=== PATIENT | male | born 1965 | race Caucasian/White ===

== ENCOUNTER 2018-01-26 12:05 | Emergency (ER) | payer BC, SELFPAY ==
[2018-01-26 12:20] VITALS: BP 138/86; PULSE 102; RESP 18; TEMP 37.1; O2SAT 94
--- NOTE | 2018-01-26 13:11 | DI.RAD_ITS ---
SYMPTOMS/DIAGNOSIS: COUGH, SHORTNESS OF BREATH AP AND LATERAL CHEST: The lungs are well expanded and free of infiltrate. The cardiovascular structures are intact. SUMMARY: No evidence of acute cardiopulmonary disease.
[2018-01-26 13:44] LABS: Abs Immature Grans 0.02 k/cumm (0.0-0.09); Absolute Basophil Count 0.06 k/cumm (0.0-0.2); Absolute Eosinophil Count 0.32 k/cumm (0.0-0.7); Absolute Lymphocyte Count 3.34 k/cumm (1.2-3.4); Absolute Monocyte Count 0.74 k/cumm (0.11-0.7); Absolute Neutrophil Count 5.74 k/cumm (1.2-6.7); Basophils % 0.6; Eosinophils % 3.1; HCT 41.8 % (40.0-50.0); HGB 12.5 g/dL (13.5-17.5); Immature Grans % 0.2; Lymphocytes % 32.7; Mean Corp. HGB Concentration 29.9 g/dL (32.0-36.0); Mean Corpuscular Hemoglobin 20.2 pg (27.0-33.0); Mean Corpuscular Volume 67.4 fL (80-95); Monocytes % 7.2; Neutrophils % 56.2; Platelet Count 491 x1000/uL (130-400); RBC Distribution Width 22.6 % (11.8-14.1); White Blood Cell Count 10.22 k/cumm (4.4-10.8)
[2018-01-26 14:00] LABS: ALT 23 U/L (12-78); AST 17 U/L (15-37); Albumin 3.1 g/dL (3.4-5.0); Alkaline Phosphatase 86 U/L (46-116); Anion Gap 9.4 mmol/L (3-11); BUN 18 mg/dL (7-18); Bilirubin, Total 0.3 mg/dL (0.2-1.0); CO2 27.6 mmol/L (21.0-32.0); CREATININE 0.69 mg/dL (0.70-1.30); Calcium 8.8 mg/dL (8.5-10.1); Chloride 104 mmol/L (98-107); Glucose 106 mg/dL (70-100); NT-proBNP 12 pg/mL; Potassium 3.7 mmol/L (3.5-5.1); Sodium 141 mmol/L (136-145); Total Protein 8.2 g/dL (6.4-8.2)
[2018-01-26 14:08] LABS: Anisocytosis 2+; Diff Comment RBC Morph Reviewed; Hypochromasia 3+; Microcytosis 3+; Poikilocytes 1+; Polychromasia Present
[2018-01-26 14:12] LABS: D-Dimer 1030 ng/mlFEU (<500)
--- NOTE | 2018-01-26 14:44 | DI.CT_ITS ---
SYMPTOMS/DIAGNOSIS: ELEVATED D-DIMER, COUGH PE CT: CT angiography was performed with multi slice acquisition and multi planar and 3D reconstruction. The study was conducted according to the usual protocol with an intravenous injection of 89 cc of Omnipaque 350. There is no evidence of pulmonary embolic disease. The image quality is less than ideal due to patient motion and artifacts generated by the patient's orthopedic hardware in the lower dorsal and upper lumbar spine. There is a question regarding some faint increased density in the left lung bases and the possibility of an acute pneumonitis cannot be entirely excluded. There is no pleural effusion. The heart is not enlarged. There is no pericardial effusion. There is no evidence of an aortic aneurysm. SUMMARY: No evidence of pulmonary embolic disease. The possibility of an acute pneumonitis could not be entirely excluded.
--- NOTE | 2018-01-26 14:46 | ED.GENADUL_ITS ---
Discharge Plan Disposition Patient Disposition: HOME Condition: Fair Discharge Details Chief Complaint: RespSymp Clinical Impression: Pneumonia Primary Care Provider: Artis Gudino ED Provider: Angelica Tidwell Home Meds and New Rx's Prescriptions: Continue simvastatin [Zocor] 40 MG tablet 40 mg PO HS Qty: 90 RF: 4 metformin 500 MG tablet 500 mg PO BID RF: 0 multivitamin [Daily Multi-Vitamin] 1 EACH tablet 1 ea PO DAILY RF: 0 insulin glargine [Lantus U-100 Insulin] 100 UNIT/1 ML solution 50 u SQ HS Qty: 4 RF: 4 catheter [Fried Catheter] 1 EACH misc 1 ea Miscellaneous twice weekly and prn Qty: 12 RF: 12 insulin lispro [Humalog KwikPen Insulin] 100 UNIT/1 ML insulin pen 10 - 30 u SQ AC Qty: 30 RF: 3 pen needle, diabetic [BD Ultra-Fine Alie Pen Needle] 1 EACH needle 1 ea SQ AC Qty: 90 RF: 5 aspirin 81 MG tablet,delayed release (DR/EC) 81 mg PO DAILY RF: 0 acetaminophen [Mapap Extra Strength] 500 MG tablet 500 mg PO Q4H PRN PRNRF: 0 No Action benzonatate 100 mg capsule 100 mg PO TID PRN (Reason: cough) Qty: 90 RF: 0 Discharge Instructions Instructions: Pneumonia (ED) Additional Instructions: Encourage hydration. Take antibiotics as prescribed, the remaining [facility]. They should have this ready for you tomorrow. Please use albuterol inhaler 2 puffs 3-4 times per day as needed. Please keep upcoming appointment with primary care. If you develop shortness of breath, difficulty breathing or other new/worsening symptoms please seek care urgently once again. Referrals: Artis Gudino [Primary Care Provider] - Discharge Data Discharge Date/Time-TO BE ENTERED AT DEPARTURE: 01/26/18 16:28 Medical Decision Making Patient presents today with chief complaint of cough. Cough has been ongoing for the past several weeks. Patient was hospitalized recently for colostomy placement the beginning of the month. Since the cough has been nonproductive. Denies any fevers or chills. Denies any CP. Endorses SOB with cough, none with eertion or when at rest and not coughing. History is most consistent with infectious source. Patient's HR is elevated at 102, O2 is slightly low at 94. Concerned, given recent hospitalization and change in vital signs that he may be at risk for PE. He states that he has had a clot historically but is not currently on any anticoagulants. Calves are not swollen. Patient has history of paraplegia, legs are insensate. He appears in no acute distress. Appear nontoxic. Plan to obtain XR and laboratory evaluation. CXR reviewed by radiologist. No acute cardiopulmonary disease noted. Laboratory evaluation significant for elevated d-dimer of 1030. Platelets are also elevated, patient has been elevated like this historically. No leukocytosis. Obtained CT for PE protocol. This was reviewed by radiologist, discussed results on the phone, who advised that there is no evidence of PE. Advised that there is concerning area of possible pneumonia in the LLL. Discussed findings with the patient. He will be treated for pneumonia. Encuraged hydration, he is able to take in fluids orally at thsi time. Fazal treat for possible hospital acquired pneumonia. Patient given albuterol inhaler while here and instructed on usage to help with symptomatic management. Advised f/u with PCP within the next week for reevaluation. He was given strict return precautions. All of his questions and concerns were addressed, he is in agreement with this plan. HPI General Mode of arrival: wheelchair . Date/Time Provider Initiated Documentation: 01/26/18 12:22 . Limitations to Documentation: no limitations . Information obtained by: patient . HPI Narrative: Patient is a 52 year old male presenting today with chief complaint of cough. Patient has history of diabetes, paraplegia, hypertension and hyperlipidemia. Patient reports that he is been ill for the past several weeks with a dry cough. Denies any fevers or chills. No sore throat or ear pain. Denies any GI upset. Patient was seen by his primary care 1 week ago and was begun on levofloxacin. Reports he subsequently finished the course and despite this the cough is persistent. Reports that the cough is dry. Season he coughs he can have shortness of breath and is not having any baseline or exertionally based. Denies any chest pain. Related Data Home Medications Medication Instructions Recorded Confirmed simvastatin [Zocor] 40 mg PO HS #90 tab 01/22/17 01/28/18 acetaminophen [Mapap Extra 500 mg PO Q4H PRN PRN tab 07/04/17 01/28/18 Strength] aspirin 81 mg PO DAILY tabec 07/04/17 01/28/18 metformin 500 mg PO BID tab-cap 08/04/17 01/28/18 insulin glargine [Lantus U-100 50 u SQ HS #4 vial 11/02/17 01/20/18 Insulin] multivitamin [Daily Multi-Vitamin] 1 ea PO DAILY 11/02/17 01/28/18 catheter [Fried Catheter] #12 ea 12/02/17 01/20/18 insulin lispro [Humalog KwikPen 10 - 30 u SQ AC #30 pen 12/03/17 01/28/18 Insulin] pen needle, diabetic [BD #90 ndl 12/06/17 01/28/18 Ultra-Fine Alie Pen Needle] benzonatate 100 mg capsule 100 mg PO TID PRN #90 cap 01/28/18 01/28/18 Previous Rx's Medication Instructions Recorded simvastatin [Zocor] 40 mg PO HS #90 tab 01/22/17 acetaminophen [Mapap Extra 500 mg PO Q4H PRN PRN tab 07/04/17 Strength] aspirin 81 mg PO DAILY tabec 07/04/17 insulin glargine [Lantus U-100 50 u SQ HS #4 vial 11/02/17 Insulin] catheter [Fried Catheter] #12 ea 12/02/17 insulin lispro [Humalog KwikPen 10 - 30 u SQ AC #30 pen 12/03/17 Insulin] pen needle, diabetic [BD #90 ndl 12/06/17 Ultra-Fine Alie Pen Needle] benzonatate 100 mg capsule 100 mg PO TID PRN #90 cap 01/28/18 Allergies Allergy/AdvReac Type Severity Reaction Status Date / Time lisinopril AdvReac Mild COUGH Unverified 01/26/18 12:23 General Stated Complaint: RespSymp MENDOZA: 4 Review of Systems Constitutional Reports as per HPI, Denies chills and Denies fever(s) ENT Reports as per HPI Cardiovascular Denies chest pain, Denies chest pain at rest, Denies chest pain with activity, Denies dyspnea and Denies dyspnea on exertion Respiratory Reports as per HPI, Reports cough, Denies hemoptysis, Denies dyspnea, Denies dyspnea on exertion and Denies wheezing Gastrointestinal Denies change in stool character (patient recently underwent colostomy placement ), Denies nausea and Denies vomiting Integumentary/Breasts Denies rash Allergic/Immunologic Denies wheezing PFSH Family History Mother No problems noted. Father No problems noted. Brother No problems noted. Brother No problems noted. Grandfather Diabetes Personal history of malignant neoplasm Grandfather No problems noted. Grandmother Essential hypertension Personal history of malignant neoplasm Cerebrovascular accident Asthma Grandmother No problems noted. MATERNAL UNCLE Diabetes Social History marital status: SINGLE current occupational status: employed current occupation: [employer] frequency: 3-4 times per week duration: 15-30 minutes/day Smoking/Tobacco Use Status: Never alcohol intake: never Surgical History Debridement Ulcer (06/28/17) Exam Const General: cooperative, healthy appearing, comfortable, no acute distress and well groomed Nutritional Appearance: average body habitus and well nourished Orientation: alert and awake HENMT Head: normal to inspection and normocephalic Ears: hearing grossly normal bilaterally, external ears normal and TM's normal bilaterally Face and sinus: normal facial exam Mouth: oral mucosae normal, lip normal, tongue normal, oropharynx normal and moist mucous membranes Throat: posterior oropharynx normal, tonsils normal and uvula midline Eyes General: appearance normal, both eyes and all related structures Neck Neck: normal visual inspection and no lymphadenopathy Resp Effort & Inspection: normal respiratory effort, able to speak in complete sentences and no respiratory distress Auscultation: clear to auscultation bilaterally Cardio Rate: regular rate Rhythm: regular rhythm Heart Sounds: S1 normal and S2 normal Skin General skin exam: no rashes or lesions noted Extrem General: no pedal edema (no swelling or discoloration to the LE) Psych Appearance: grossly normal and well kempt Mental Status: mental status grossly normal Speech and Movement: speech and movement normal Course Vital Signs Temperature 37.1 C 01/26/18 12:20 Pulse 102 H 01/26/18 12:20 Respiratory Rate 18 01/26/18 12:20 Blood Pressure 138/86 01/26/18 12:20 Pulse Oximetry 94 L 01/26/18 12:20 Temperature 37.1 C 01/26/18 12:20 Temperature Source Skin 01/26/18 12:20 Pulse 102 H 01/26/18 12:20 Respiratory Rate 18 01/26/18 12:20 Respiratory Effort 01/26/18 12:35 Blood Pressure 138/86 01/26/18 12:20 Blood Pressure Position Sitting 01/26/18 12:20 Pulse Oximetry 94 L 01/26/18 12:20 Oxygen Delivery Method Room Air 01/26/18 12:20 Oxygen Flow Rate 0 01/26/18 12:20
[2018-01-26] MEDS: Normal Saline 1,000 ML 1000 ML IV (15:00)
[2018-01-26 15:32] LABS: INR 1.1 (1.0-3.5); PTT Activated 27.9 sec (21.0-31.4); Prothrombin Time 10.9 sec (9.3-10.8)
[2018-01-26] MEDS: Cefpodoxime 200 MG TAB 400 MG PO (16:11)
[2018-01-26] MEDS: Albuterol HFA 8 GM 60 PUFF INH IH (16:30)
== END 2018-01-26 16:28 | disposition home or self-care (01) ==
PROVIDERS: Emergency Provider Physician Assistant; PCP Family Medicine
DX: J18.9 Pneumonia, unspecified organism (principal); E11.9 Type 2 diabetes mellitus without complications; Z79.4 Long term (current) use of insulin; I10 Essential (primary) hypertension
CPT/HCPCS: 36415; 71275; 80053; 94640; 96360; 99285; 71046; 83880; 85025; 85379; 85610; 85730; 99284

== ENCOUNTER 2018-02-04 09:58 | Outpatient (CLI) | payer BC, SELFPAY ==
[2018-02-04 11:02] LABS: Hemoglobin A1C 7.1 % (4.5-6.2)
== END 2018-02-04 10:18 ==
PROVIDERS: PCP Family Medicine; Visit Provider Family Medicine
DX: E11.9 Type 2 diabetes mellitus without complications (principal)
CPT/HCPCS: 36415; 83036

== ENCOUNTER 2018-03-03 10:36 | Outpatient (REF) | payer BC, SELFPAY ==
[2018-03-03 11:09] LABS: Bilirubin Negative (Negative); Blood Small (Negative); Clarity Sl Cloudy; Glucose 500 mg/dL (Negative); Ketones Trace mg/dL (Negative); Leukocyte Esterase Trace (Negative); Nitrite Positive (Negative); Specific Gravity 1.025 (1.005-1.025); Urobilinogen 0.2 EU/dL (Up TO 0.2); pH 5.5 (5-8)
[2018-03-03 11:40] LABS: WBC 20-50 HPF (0-5)
[2018-03-03 11:41] LABS: Bacteria Many HPF (Negative); C & S Indicated? Yes; Casts Negative LPF (Negative); Epithelial Cells Negative HPF (Negative); Mucus Negative (Negative)
== END 2018-03-03 10:56 ==
LOC: LBN 10:36
PROVIDERS: PCP Family Medicine; Visit Provider Family Medicine
DX: R39.89 Other symptoms and signs involving the genitourinary system (principal)
CPT/HCPCS: 87077; 81003; 81015; 87086

== ENCOUNTER 2018-05-30 10:35 | Outpatient (REF) | payer BC, SELFPAY ==
[2018-05-30 11:08] LABS: HCT 41.7 % (40.0-50.0); HGB 12.9 g/dL (13.5-17.5); Mean Corp. HGB Concentration 30.9 g/dL (32.0-36.0); Mean Corpuscular Hemoglobin 21.5 pg (27.0-33.0); Mean Corpuscular Volume 69.4 fL (80-95); Mean Platelet Volume 9.9 fL (8.0-11.0); Platelet Count 364 x1000/uL (130-400); RBC 6.01 m/cumm (4.50-6.00); RBC Distribution Width 20.3 % (11.8-14.1); White Blood Cell Count 8.42 k/cumm (4.4-10.8)
[2018-05-30 11:55] LABS: ALT 17 U/L (12-78); AST 13 U/L (15-37); Alkaline Phosphatase 92 U/L (46-116); Anion Gap 10.7 mmol/L (3-11); BUN 23 mg/dL (7-18); Bilirubin, Total 0.1 mg/dL (0.2-1.0); C-Reactive Protein 1.61 mg/dL (0.0-0.3); CO2 26.3 mmol/L (21.0-32.0); CREATININE 0.73 mg/dL (0.70-1.30); Calcium 8.8 mg/dL (8.5-10.1); Chloride 106 mmol/L (98-107); Glucose 124 mg/dL (70-100); Sodium 143 mmol/L (136-145); Total Protein 7.1 g/dL (6.4-8.2)
== END 2018-05-30 10:55 ==
LOC: LBN 10:35
PROVIDERS: PCP Family Medicine; Visit Provider Family Medicine
DX: M86.60 Other chronic osteomyelitis, unspecified site (principal)
CPT/HCPCS: 80053; 85027; 86140

== ENCOUNTER 2018-06-06 10:54 | Outpatient (REF) | payer BC, SELFPAY ==
[2018-06-06 12:54] LABS: HCT 44.4 % (40.0-50.0); HGB 13.6 g/dL (13.5-17.5); Mean Corp. HGB Concentration 30.6 g/dL (32.0-36.0); Mean Corpuscular Hemoglobin 21.3 pg (27.0-33.0); Mean Corpuscular Volume 69.5 fL (80-95); Mean Platelet Volume 10.1 fL (8.0-11.0); Platelet Count 333 x1000/uL (130-400); RBC 6.39 m/cumm (4.50-6.00); RBC Distribution Width 21.1 % (11.8-14.1); White Blood Cell Count 7.13 k/cumm (4.4-10.8)
[2018-06-06 13:36] LABS: ALT 32 U/L (12-78); AST 20 U/L (15-37); Albumin 3.2 g/dL (3.4-5.0); Alkaline Phosphatase 102 U/L (46-116); Anion Gap 9.5 mmol/L (3-11); BUN 18 mg/dL (7-18); Bilirubin, Total 0.3 mg/dL (0.2-1.0); C-Reactive Protein 2.44 mg/dL (0.0-0.3); CO2 27.5 mmol/L (21.0-32.0); CREATININE 0.67 mg/dL (0.70-1.30); Calcium 8.7 mg/dL (8.5-10.1); Chloride 106 mmol/L (98-107); Glucose 158 mg/dL (70-100); Potassium 3.7 mmol/L (3.5-5.1); Sodium 143 mmol/L (136-145); Total Protein 7.4 g/dL (6.4-8.2)
[2018-06-06 13:45] LABS: Absolute Neutrophil Count 2.92 k/cumm (1.2-6.7)
[2018-06-06 13:46] LABS: Absolute Eosinophil Count 0.29 k/cumm (0.0-0.7); Absolute Lymphocyte Count 3.64 k/cumm (1.2-3.4); Absolute Monocyte Count 0.29 k/cumm (0.11-0.7); Anisocytosis 1+; Atypical Lymphocytes % 7; Diff Comment Manual Differential; Microcytosis 2+
== END 2018-06-06 11:14 ==
LOC: LBN 10:54
PROVIDERS: PCP Family Medicine; Visit Provider Family Medicine
DX: M86.60 Other chronic osteomyelitis, unspecified site (principal)
CPT/HCPCS: 80053; 85025; 86140

== ENCOUNTER 2019-10-31 11:05 | Outpatient (CLI) | payer BC, SELFPAY ==
[2019-10-31 13:03] LABS: CREATININE 0.83 mg/dL (0.70-1.30); Calculated LDL 136 mg/dL (<100); Cholesterol 198 mg/dL (<200); HDL Cholesterol 29 mg/dL (40-60); Potassium 4.1 mmol/L (3.5-5.1); Triglyceride 168 mg/dL (<150)
[2019-10-31 13:09] LABS: Hemoglobin A1C 7.9 % (3.8-5.6)
== END 2019-10-31 11:25 ==
PROVIDERS: PCP Family Medicine; Visit Provider Family Medicine
DX: I10 Essential (primary) hypertension (principal); E78.5 Hyperlipidemia, unspecified; R73.9 Hyperglycemia, unspecified
CPT/HCPCS: 36415; 80061; 82565; 83036; 84132

== ENCOUNTER 2020-10-22 09:29 | Outpatient (CLI) | payer OTHER, SELFPAY ==
[2020-10-22 12:28] LABS: HCT 56.4 % (40.0-50.0); HGB 17.8 g/dL (13.5-17.5); MCH 26.1 pg (27.0-33.0); MCHC 31.6 % (32.0-36.0); MCV 82.8 fL (80-95); MPV 10.9 fL (8.0-11.0); Platelet Count 266 10^3/uL (130-400); RBC 6.81 10^6/uL (4.36-5.78); RDW 15.9 % (11.8-14.1); RDW-SD 45.1 fL; WBC 8.04 10^3/uL (4.4-10.8)
[2020-10-22 13:18] LABS: CREATININE 0.7 mg/dL (0.70-1.30); Calculated LDL 127 mg/dL (<100); Cholesterol 187 mg/dL (<200); HDL Cholesterol 26 mg/dL (40-60); Potassium 4.2 mmol/L (3.5-5.1); Triglyceride 172 mg/dL (<150)
[2020-10-22 13:22] LABS: Hemoglobin A1C 6.2 % (<5.7)
[2020-10-22 13:29] LABS: COMMENT (LAB VIEW ONLY) 137.88 mg/dL
[2020-10-22 13:32] LABS: Microalb ug/mg Crea 77.6 ug/mg Cr
[2020-10-24 15:43] LABS: Erythropoietin 2.4 mIU/mL (2.6 - 18.5)
== END 2020-10-22 09:30 | disposition home or self-care (01) ==
LOC: LOS 09:29
PROVIDERS: PCP Family Medicine; Referring Provider Family Medicine; Visit Provider Family Medicine
DX: E11.65 Type 2 diabetes mellitus with hyperglycemia (principal); E78.5 Hyperlipidemia, unspecified; I10 Essential (primary) hypertension; R53.83 Other fatigue
CPT/HCPCS: 36415; 80061; 82668; 85027; 82043; 82565; 82570; 83036; 84132

== ENCOUNTER 2020-10-29 03:09 | Outpatient (CLI) | payer OTHER, SELFPAY ==
[2020-11-01 10:03] LABS: JAK2 Result see interpretation
== END 2020-10-29 03:10 | disposition home or self-care (01) ==
LOC: LOS 03:09
PROVIDERS: PCP Family Medicine; Visit Provider Family Medicine
DX: D75.1 Secondary polycythemia (principal)
CPT/HCPCS: 36415; 81270; 82043; 82570

== ENCOUNTER 2021-07-10 02:41 | Outpatient (CLI) | payer OTHER, SELFPAY ==
[2021-07-10 08:44] LABS: HCT 52.2 % (40.0-50.0); HGB 16.8 g/dL (13.5-17.5); MCH 27.3 pg (27.0-33.0); MCHC 32.2 % (32.0-36.0); MCV 84.9 fL (80-95); Platelet Count 262 10^3/uL (130-400); RBC 6.15 10^6/uL (4.36-5.78); RDW 14.3 % (11.8-14.1); RDW-SD 44.2 fL; WBC 7.26 10^3/uL (4.4-10.8)
[2021-07-10 18:46] LABS: PSA, Screening 2.4 ng/mL (0.0-3.5)
== END 2021-07-10 02:42 | disposition home or self-care (01) ==
LOC: LBO 02:41
PROVIDERS: PCP Family Medicine; Visit Provider Family Medicine
DX: D75.1 Secondary polycythemia (principal); R33.9 Retention of urine, unspecified; Z12.5 Encounter for screening for malignant neoplasm of prostate
CPT/HCPCS: 36415; 84153; 85027

== ENCOUNTER 2022-05-12 04:00 | Outpatient (CLI) | payer MEDICARE, SELFPAY ==
[2022-05-12 14:08] LABS: BUN 29 mg/dL (7-18); CREATININE 0.8 mg/dL (0.70-1.30); Calculated LDL 84 mg/dL (<100); Chloride 104 mmol/L (98-107); Cholesterol 162 mg/dL (<200); Estimated GFR 105.17 (mL/min/1.73m2); Glucose 108 mg/dL (74-106); HDL Cholesterol 33 mg/dL (40-60); Potassium 3.8 mmol/L (3.5-5.1); Sodium 141 mmol/L (136-145); TSH (W/Ref FT4) 3.03 uIU/mL (0.36-3.74); Triglyceride 226 mg/dL (<150)
== END 2022-05-12 04:01 | disposition home or self-care (01) ==
LOC: LOS 04:00
PROVIDERS: PCP Family Medicine; Visit Provider Nurse Practitioner Family
DX: E78.5 Hyperlipidemia, unspecified (principal); E03.9 Hypothyroidism, unspecified; E87.1 Hypo-osmolality and hyponatremia
CPT/HCPCS: 36415; 80048; 80061; 84443

== ENCOUNTER 2022-11-13 18:31 | Outpatient (CLI) | payer MEDICARE, SELFPAY | END 2022-11-13 18:32 | disposition home or self-care (01) | LOC: DI.CM 18:32 | PROVIDERS: PCP Family Medicine; Visit Provider Physician Assistant | DX: E86.0 Dehydration (principal) | CPT/HCPCS: 93010 ==

== ENCOUNTER 2022-11-13 19:19 | Inpatient (IN) | payer MEDICARE, SELFPAY ==
[2022-11-13] VITALS (51 sets, daily range): BP systolic 92–108; BP diastolic 56–64; PULSE 134–139; RESP 15–43; TEMP 37.7; O2SAT 93–100
--- NOTE | 2022-11-13 19:00 | RT.EKG_ITS ---
APPROVED REPORT Exam: Resting ECG Reason for Exam: chest pain Patient Location: E HR:139 bpm ECG Measurements Heart Rate 139 AXIS AK 134 P 16 QRSd 97 QRS 75 QT 289 T -50 QTc 440 Conclusion Sinus tachycardia...rate> 99 Low voltage, extremity and precordial leads...extremity<0.5mV, precordial<1.0mV Consider anteroseptal infarct...Q >30mS, dimin R, V1-V2 Nonspecific ST-T changes
[2022-11-13] MEDS: Normal Saline 2,000 ML 1000 ML IV (19:15)
--- NOTE | 2022-11-13 19:15 | DI.RAD_ITS ---
Exam(s) XR PORTABLE CHEST AP EXAM: XR PORTABLE CHEST AP CLINICAL HISTORY: sepsis. TECHNIQUE: 2D digital imaging was performed. COMPARISON: CR XR CHEST 2V PA LATERAL from 01/26/2018 FINDINGS: Single AP portable view. Heart size is upper normal. The mediastinum is not widened. There is platelike atelectasis in the lower right lung field. No other focal pulmonary findings nor pleural effusions. Oconnor rods in the thoracolumbar spine again noted. IMPRESSION: Slightly atelectasis in the lower right lung field. DATA REPOSITORY: RADIATION DOSE DELIVERED:
--- NOTE | 2022-11-13 19:20 | W.ED.GENAD ---
Discharge Plan Disposition Patient Disposition: Admit to [facility] Condition: Poor Discharge Details Clinical Impression: UTI (urinary tract infection), Hypokalemia, Sepsis Primary Care Provider: Artis Gudino ED Provider: Gilberto Ochoa Edmondson Meds and New Rx's Prescriptions: No Action (DME) insulin syringe-needle U-100 [BD Insulin Syringe Ultra-Fine] 0.3 mL 31 gauge x 5/16 syringe See Rx Instructions .ROUTE .MEDSUPPLY Qty: 400 3RF Rx Instructions: inject 4 x/day (DME) FreeStyle Test Strip See Dose Instructions .ROUTE .MEDSUPPLY Qty: 300 3RF Dose Instruction: As directed Rx Instructions: test 3 x/day losartan 50 mg tablet 50 mg PO DAILY Qty: 90 3RF simvastatin [Zocor] 40 mg tablet 40 mg PO HS Qty: 90 4RF Trulicity 0.75 mg/0.5 mL pen injector 0.75 mg SC QWEEK Qty: 2 11RF metformin 1,000 mg tablet 1,000 mg PO BID Qty: 180 3RF multivitamin [Daily Multi-Vitamin] 1 EACH tablet 1 ea PO DAILY (DME) Orourke Catheter 1 EACH misc 1 ea Miscellaneous twice weekly and prn Qty: 12 12RF Rx Instructions: 16 Kinyarwanda orourke catheter with 5 cc balloon aspirin 81 MG tablet,delayed release (DR/EC) 81 mg PO DAILY 0RF Medical Decision Making Patient presenting from [facility] with tachycardia, weakness, chills, sweats. He is paraplegic and straight caths on a regular basis. By report a urine dip was negative. He denies having headache, chest pain, shortness of breath, cough, abdominal pain, vomiting. Does have prior history of decubitus ulcers and osteomyelitis. IV in place and will start fluid resuscitation with at least 2 L. Laboratory studies, chest x-ray, urine obtained and sent. EKG is sinus tachycardia with no acute ST changes, nonspecific changes noted, not significantly different from 2017. Patient is still tachycardia after liter and a half. Third liter of fluids ordered. He has low-grade temperature here. White count and hemoglobin are normal. Lactate elevated to 3.8. Potassium is low at 2.9. Bicarb is low and anion gap is elevated to 18.5. His kidney function is normal. His liver function is abnormal which is new compared to previous but he has completely had no abdominal pain, vomiting or abdominal tenderness. Urinalysis has 10-20 white cells and few bacteria on micro. He has received 2 g ceftriaxone intravenously after blood cultures obtained. Will reevaluate for admission to ICU versus floor based on response to 3 L of fluid once that is completed. IV potassium has been ordered. After 3 L of fluid patient remains tachycardic to the 130 range. Continue LR at 200 an hour. Repeat lactic acid is improved down to 2.2. Venous blood gas with a pH of 7.42 and a PCO2 of 22 with a bicarb of 14 consistent with metabolic acidosis and compensatory respiratory alkalosis. Repeat BMP with improved potassium to 3.2 but bicarb and anion gap which are still abnormal. Patient has had no urine cultures here in over 5 years. Discussed with hospitalist in regards to ICU admission. Will start norepinephrine and titrate for MAP greater than 60. Medical Records Medical records reviewed: Yes I reviewed the patient's medical records. Lab Data Lab results reviewed: Yes I reviewed the patient's lab results. ECG Data Attestation: I personally reviewed and interpreted this ECG (s) as follows: Prior ECG tracings: available for review Interpretation: see EKG HPI General Mode of arrival: EMS. Date/Time Provider Initiated Documentation: 11/13/22 19:20. Limitations to Documentation: no limitations. Information obtained by: patient and RN/MD. HPI Narrative: Patient presents to ED by ambulance from [facility] where he had presented with 3 days of not feeling well. Patient is a paraplegic and straight caths on a regular basis. He has developed weakness, chills, sweats. He denies headache, chest pain, shortness of breath, cough, abdominal pain, vomiting. He placed a Orourke catheter himself last night. At urgent care he was found to be tachycardic to the 150 range. Urine dipstick there was reportedly negative. He was sent here for further evaluation. Related Data Home Medications Medication Instructions Recorded Confirmed aspirin 81 mg tablet,delayed 81 mg PO DAILY 07/04/17 11/13/22 release multivitamin (Daily Multi-Vitamin 1 ea PO DAILY 11/02/17 11/13/22 tablet) catheter 16 Fr (Orourke Catheter) #12 ea 12/02/17 11/13/22 insulin syringe-needle U-100 0.3 #400 ea 10/31/19 11/13/22 mL 31 gauge x 5/16 (BD Insulin Syringe Ultra-Fine) blood sugar diagnostic (FreeStyle #300 ea 04/30/20 11/13/22 Test strips) metformin 1,000 mg tablet 1,000 mg PO BID #180 tabs 05/06/22 11/13/22 dulaglutide 0.75 mg/0.5 mL 0.75 mg (0.5 mL) subcut QWEEK #2 mL 11/05/22 11/13/22 subcutaneous pen injector (Trulicity) losartan 50 mg tablet 50 mg PO DAILY #90 tabs 11/05/22 11/13/22 simvastatin 40 mg tablet (Zocor) 40 mg PO HS #90 tabs 11/05/22 11/13/22 Previous Rx's Medication Instructions Recorded aspirin 81 mg tablet,delayed 81 mg PO DAILY 07/04/17 release catheter 16 Fr (Orourke Catheter) #12 ea 12/02/17 insulin syringe-needle U-100 0.3 #400 ea 10/31/19 mL 31 gauge x 5/16 (BD Insulin Syringe Ultra-Fine) blood sugar diagnostic (FreeStyle #300 ea 04/30/20 Test strips) metformin 1,000 mg tablet 1,000 mg PO BID #180 tabs 05/06/22 dulaglutide 0.75 mg/0.5 mL 0.75 mg (0.5 mL) subcut QWEEK #2 mL 11/05/22 subcutaneous pen injector (Trulicity) losartan 50 mg tablet 50 mg PO DAILY #90 tabs 11/05/22 simvastatin 40 mg tablet (Zocor) 40 mg PO HS #90 tabs 11/05/22 Allergies Allergy/AdvReac Type Severity Reaction Status Date / Time lisinopril AdvReac Mild COUGH Verified 11/13/22 18:20 General MENDOZA: 4 Review of Systems Narrative: Per HPI PFSH All Active Problems (Updated 11/13/22 @ 21:18 by Gilberto Ochoa MD) UTI (urinary tract infection) (Acute) Retinopathy (Acute ~08/2021) 09/08/21 B/L (MILD) SHIPPEE Polycythemia (Acute) Abscess of left leg (Acute 07/21/17) Chronic osteomyelitis of left lower leg (Acute 07/21/17) ED (erectile dysfunction) of organic origin (Acute 05/22/16) Ischemia (Acute 07/21/17) Left shoulder pain (Acute 02/22/17) Neurogenic bladder (Acute 02/01/17) Other acute osteomyelitis, other site (Acute 06/28/17) ischial tuberosity ulcer Tubular adenoma (Acute 12/24/17) [facility] [place]-12/24/17 Urinary retention (Acute 02/01/17) 01/30/17 UNABLE TO SELF CATH Bacterial infection due to Bacteroides fragilis (Acute) Decubitus ulcer of ischial area, stage 4 (Acute) Urethral diverticulum (Acute) Osteomyelitis (Acute) Diabetes mellitus (Acute) Supraspinatus tendinitis (Acute) Bacteremia (Acute) Shoulder pain, acute (Acute) Anemia of chronic disease (Acute) Hypokalemia (Acute) Sepsis (Acute) Abscess of pelvis (Acute) Medical History (Updated 11/13/22 @ 21:18 by Gilberto Ochoa MD) Deep vein thrombosis (DVT) of brachial vein of left upper extremity Essential hypertension (08/30/12) GERD (gastroesophageal reflux disease) Hyperlipidemia Migraine Paraplegia Type II diabetes mellitus with complication, uncontrolled Surgical History Debridement Ulcer (06/28/17) infected wound, ischial tuberosity Family History Grandfather Diabetes Personal history of malignant neoplasm PANCREATIC Grandmother Essential hypertension Personal history of malignant neoplasm Stroke Asthma MATERNAL UNCLE Diabetes Social History Smoking/Tobacco Use Status: Never Second Hand Exposure: No Smoking risk assessment performed?: Yes Alcohol Intake: never Substance use type: former substance user Household members: family Housing: house Communication Needs: None current occupation: [employer] Pets and animals: Yes Pets and animals: dog(s) Sexually active: No Current gender identity: male What is your relationship status?: never How often do you talk on the phone with friends or family?: once per week How often do you get together with friends or relatives?: once per week Do you belong to any clubs or organized social groups?: no Panel score (0-1 are the most socially isolated patients): 0 What type of physical activity do you participate in: regular exercise (stationary bike and up and down ramp in wheelchair) and wheelchair-bound Duration: 15-30 minutes/day Frequency: daily Nisha/Mormon: No preference Special nisha needs: No Seatbelt use: always Helmet use: No Drive intox or ride w/intox compactor driver: No Do you feel safe in your relationship?: Yes Exam Narrative Exam Narrative: Const: WDWN male in NAD. HEENT: NC/AT. Normal facial exam. Eyes: Normal conjunctiva and sclera. Neck: Supple. Trachea midline. Lungs: Normal respiratory effort. Lungs are clear. Cor: RRR without murmur/gallop. Good radial pulses. GI: Soft. NT/ND. No guarding or rebound. Neuro: A+O x 3. Normal speech, mentation. Cranial nerves II - XII grossly intact. Paraplegic. Ext: No C/C/E. Skin: Diaphoretic and warm. Critical Care Time Critical Care Time Critical Care Time: Yes Total Critical Care Time: 60 Attestation: Upon my evaluation, this patient had a high probability of imminent or life-threatening deterioration, which required my direct attention, intervention, and personal management. I have personally provided 60 minutes of critical care time exclusive of time spent on separately billable procedures. Time includes review of laboratory data, radiology results, discussion with consultants, and monitoring for potential decompensation. Interventions were performed as documented above.
[2022-11-13 19:45] LABS: Abs Immature Grans 0.05 10^3/uL (0.0-0.06); Absolute Basophil Count 0.07 10^3/uL (0.0-0.2); Absolute Eosinophil Count 0.09 10^3/uL (0.0-0.7); Basophils % 0.7; Eosinophils % 0.9; HCT 44.4 % (40.0-50.0); HGB 14.5 g/dL (13.5-17.5); MCH 26.8 pg (27.0-33.0); MCHC 32.7 % (32.0-36.0); MCV 82 fL (80-95); MPV 9.7 fL (8.0-11.0); Platelet Count 159 10^3/uL (130-400); RBC 5.42 10^6/uL (4.36-5.78); RDW 14.5 % (11.8-14.1); RDW-SD 42.7 fL; WBC 9.94 10^3/uL (4.4-10.8)
[2022-11-13] MEDS: cefTRIAXone 2 GM/50 ML BAG IVPB (19:54)
[2022-11-13 20:02] LABS: Lactate 3.8 mmol/L (0.6-1.4)
[2022-11-13 20:12] LABS: Absolute Neutrophil Count 9.64 10^3/uL (1.2-6.7); Bands % 21; Diff Comment Manual Differential; Metamyelocytes % 1; RBC Morphology Normal
[2022-11-13 20:14] LABS: Bilirubin Small (Negative); Blood Small (Negative); Clarity Sl Cloudy (Clear); Glucose Negative (Negative); Ketones >=160 mg/dL (Negative); Leukocyte Esterase Trace (Negative); Nitrite Negative (Negative); Specific Gravity 1.015 (1.005-1.025); pH >= 9.0 (5-8)
[2022-11-13 20:26] LABS: ALT 81 U/L (16-63); AST 113 U/L (15-37); Albumin 2.7 g/dL (3.4-5.0); Alkaline Phosphatase 216 U/L (46-116); Anion Gap 18.5 mmol/L (3-11); BUN 17 mg/dL (7-18); Bilirubin, Total 1.3 mg/dL (0.2-1.0); CO2 16.5 mmol/L (21.0-32.0); CREATININE 1.3 mg/dL (0.70-1.30); Calcium 7.5 mg/dL (8.5-10.1); Chloride 101 mmol/L (98-107); Estimated GFR 65.28 (mL/min/1.73m2); Glucose 183 mg/dL (74-106); Sodium 136 mmol/L (136-145); Total Protein 7.2 g/dL (6.4-8.2)
[2022-11-13 20:30] LABS: Bacteria Few HPF (Negative); C & S Indicated? Yes; Casts Negative LPF (Negative); Crystals Negative HPF (Negative); Epithelial Cells Rare HPF (Negative); Mucus Negative (Negative)
[2022-11-13 20:37] LABS: Potassium 2.9 mmol/L (3.5-5.1)
--- NOTE | 2022-11-13 20:55 | DI.VRAD_ITS ---
PROCEDURE INFORMATION: Exam: XR Chest Exam date and time: 11/13/2022 8:33 PM Age: 56 years old Clinical indication: Sepsis TECHNIQUE: Imaging protocol: Radiologic exam of the chest. Views: 1 view. COMPARISON: CR XR CHEST 2V PA LATERAL 01/26/2018 1:35 PM FINDINGS: Tubes, catheters and devices: Cardiac leads superimposed over the chest. Lungs: Right basilar area of linear parenchymal scarring or subsegmental collapse / atelectasis. No alveolar infiltrate. Pleural spaces: No pneumothorax. No pleural fluid collection. Heart/Mediastinum: Normal heart size. Bones/joints: Spinal degenerative changes. Prior spinal surgery. IMPRESSION: 1. No pulmonary infiltrate. 2. Right basilar area of linear parenchymal scarring or subsegmental collapse / atelectasis. Dictated and Authenticated by: Taco Couch MD. Ordering:HARDIK Macias MD
[2022-11-13] MEDS: Lactated Ringers 1,000 ML 1000 ML IV (21:39)
[2022-11-13] MEDS: ACETAMINOPHEN 1,000 MG/100 ML BTL 400 MG IVPB (21:50)
[2022-11-13] MEDS: Potassium Chloride 20 MEQ TABCR 40 MEQ PO (21:50)
[2022-11-13] MEDS: POTASSIUM CHLORIDE 20 MEQ/100 ML BAG 50 MEQ IVPB (21:51)
[2022-11-13 22:49] LABS: BE (Venous) -10 mmol/L (-2-3); HCO3 (Venous) 14 mmol/L (23-28); O2 Sat (Venous) 97 %; TCO2 (Venous) 13 mmol/L (24-29); pCO2 (Venous) 22 mmHg (41-51); pH (Venous) 7.42 (7.31-7.41); pO2 (Venous) 72 mmHg
[2022-11-13 22:55] LABS: Lactate 2.2 mmol/L (0.6-1.4)
[2022-11-13 22:59] LABS: Anion Gap 16.5 mmol/L (3-11); BUN 20 mg/dL (7-18); CO2 15.5 mmol/L (21.0-32.0); CREATININE 1.4 mg/dL (0.70-1.30); Calcium 7.6 mg/dL (8.5-10.1); Chloride 99 mmol/L (98-107); Estimated GFR 59.73 (mL/min/1.73m2); Glucose 187 mg/dL (74-106); Potassium 3.2 mmol/L (3.5-5.1); Sodium 131 mmol/L (136-145)
[2022-11-14] VITALS (187 sets, daily range): BP systolic 80–143; BP diastolic 50–122; PULSE 90–141; RESP 0–36; TEMP 36.5–38.3; O2SAT 93–100
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
[2022-11-14] MEDS: Norepinephrine in D5W 8 MG/250 ML BAG 9.375 MG IV (03:35)
[2022-11-14] MEDS: Lactated Ringers 1,000 ML 200 ML IV (04:10)
--- NOTE | 2022-11-14 04:41 | NUR.NOTE ---
Pt w/ paraplegia presented to ER w/ high concern for sepsis. receiving treatment of abx and IVF and tolerating well. No ICU level bed available overnight d/t staffing issues. W/ house supervisors help acquired a regular hospital bed since pt at high risk for skin breakdown and uncomfortable on ER stretcher. Skin assessment performed by RN Elana. Noted small scabbed area that appears to be healing older pressure wound in gluteal cleft surrounded by blanching and non-blanching erythema. Pt states this is an 'old pressure sore that's all healed'. Mepilex heart applied over coccyx and encouraged pt to reposition self similar to how he would at home if able, and to call for RN assistance if he felt unable to do so w/o help. Pt verbalized understanding.
[2022-11-14 07:36] LABS: HCT 45.2 % (40.0-50.0); HGB 14.8 g/dL (13.5-17.5); MCH 27.1 pg (27.0-33.0); MCHC 32.7 % (32.0-36.0); MCV 83 fL (80-95); MPV 11.1 fL (8.0-11.0); Platelet Count 153 10^3/uL (130-400); RBC 5.46 10^6/uL (4.36-5.78); RDW 14.8 % (11.8-14.1); RDW-SD 44.9 fL
[2022-11-14 07:50] LABS: ALT 62 U/L (16-63); AST 50 U/L (15-37); Albumin 2.7 g/dL (3.4-5.0); Alkaline Phosphatase 125 U/L (46-116); Anion Gap 14.3 mmol/L (3-11); BUN 19 mg/dL (7-18); Bilirubin, Total 0.9 mg/dL (0.2-1.0); CO2 17.7 mmol/L (21.0-32.0); CREATININE 1.2 mg/dL (0.70-1.30); Calcium 8.1 mg/dL (8.5-10.1); Chloride 102 mmol/L (98-107); Estimated GFR 71.86 (mL/min/1.73m2); Glucose 185 mg/dL (74-106); Potassium 4.2 mmol/L (3.5-5.1); Sodium 134 mmol/L (136-145); Total Protein 6.6 g/dL (6.4-8.2)
[2022-11-14] MEDS: Insulin Aspart 300 UNITS/3 ML PEN SC ×5 (08:25→17:28)
[2022-11-14] MEDS: Aspirin E.C. 81 MG TABEC PO (08:28)
[2022-11-14] MEDS: Enoxaparin 40 MG/0.4 ML SYR SC (08:28)
--- NOTE | 2022-11-14 08:30 | NUR.NOTE ---
Patient set up with breakfast tray and begins feeding himself.Nursing Note:
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
--- NOTE | 2022-11-14 12:28 | NUR.NOTE ---
Patient set up with lunch tray. Patient begins feeding himself.Nursing Note:
[2022-11-14] MEDS: Bisacodyl 10 MG SUPP PR (13:14)
--- NOTE | 2022-11-14 14:00 | NUR.NOTE ---
plant quality manager meets with patient.Nursing Note:
[2022-11-14] MEDS: Acetaminophen 325 MG TAB PO ×2 (15:34→22:22)
--- NOTE | 2022-11-14 17:54 | NUR.NOTE ---
Pt transfered from ICU to [facility] room 209. Is alert and orientated x4. Watching TV .Nursing Note:
[2022-11-14] MEDS: cefTRIAXone 2 GM/50 ML BAG IVPB (20:12)
[2022-11-14] MEDS: Simvastatin 40 MG TAB PO (22:23)
[2022-11-15 06:31] LABS: Abs Immature Grans 0.04 10^3/uL (0.0-0.06); Absolute Basophil Count 0.05 10^3/uL (0.0-0.2); Absolute Eosinophil Count 0.01 10^3/uL (0.0-0.7); Absolute Lymphocyte Count 0.97 10^3/uL (1.2-3.4); Absolute Monocyte Count 0.63 10^3/uL (0.1-0.8); Basophils % 0.5; Eosinophils % 0.1; HCT 41.1 % (40.0-50.0); Immature Grans % 0.4; Lymphocytes % 9.3; MCH 27.2 pg (27.0-33.0); MCHC 34.1 % (32.0-36.0); MCV 80 fL (80-95); MPV 10.8 fL (8.0-11.0); Monocytes % 6.1; Neutrophils % 83.6; Platelet Count 146 10^3/uL (130-400); RBC 5.14 10^6/uL (4.36-5.78); RDW 14.6 % (11.8-14.1); RDW-SD 42.6 fL
[2022-11-15 06:46] LABS: Anion Gap 9.8 mmol/L (3-11); BUN 11 mg/dL (7-18); CO2 24.2 mmol/L (21.0-32.0); CREATININE 0.8 mg/dL (0.70-1.30); Calcium 8.1 mg/dL (8.5-10.1); Chloride 105 mmol/L (98-107); Estimated GFR 105.17 (mL/min/1.73m2); Glucose 182 mg/dL (74-106); Magnesium 1.9 mg/dL (1.8-2.4); Potassium 3.1 mmol/L (3.5-5.1); Sodium 139 mmol/L (136-145)
[2022-11-15 06:48] LABS: Hemoglobin A1C 6.2 % (<5.7)
[2022-11-15 07:30] VITALS: BP 114/65; PULSE 108; RESP 18; TEMP 37.2; O2SAT 94
[2022-11-15] MEDS: Potassium Chloride 10 MEQ CAPCR 20 MEQ PO ×3 (08:38→19:29)
[2022-11-15] MEDS: Aspirin E.C. 81 MG TABEC PO (08:38)
[2022-11-15] MEDS: metFORMIN 500 MG TAB 1000 MG PO ×2 (08:38→18:05)
[2022-11-15] MEDS: Insulin Aspart 300 UNITS/3 ML PEN SC ×6 (08:39→18:04)
[2022-11-15] MEDS: Enoxaparin 40 MG/0.4 ML SYR SC (08:39)
[2022-11-15 15:17] VITALS: BP 124/81; PULSE 109; RESP 20; TEMP 37.4; O2SAT 95
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
[2022-11-15 17:38] LABS: Potassium 3.3 mmol/L (3.5-5.1)
[2022-11-15] MEDS: Simvastatin 40 MG TAB PO (19:29)
[2022-11-15] MEDS: cefTRIAXone 2 GM/50 ML BAG IVPB (19:29)
[2022-11-15] MEDS: Normal Saline Flush 10 ML SYR IVP (19:30)
[2022-11-15 21:40] VITALS: BP 101/68; PULSE 109; RESP 20; TEMP 37.6; O2SAT 95
[2022-11-16 06:28] LABS: Abs Immature Grans 0.05 10^3/uL (0.0-0.06); Absolute Basophil Count 0.03 10^3/uL (0.0-0.2); Absolute Eosinophil Count 0.03 10^3/uL (0.0-0.7); Absolute Lymphocyte Count 1.79 10^3/uL (1.2-3.4); Absolute Monocyte Count 0.83 10^3/uL (0.1-0.8); Absolute Neutrophil Count 6.82 10^3/uL (1.2-6.7); Basophils % 0.3; Eosinophils % 0.3; HCT 41.1 % (40.0-50.0); HGB 13.8 g/dL (13.5-17.5); Immature Grans % 0.5; Lymphocytes % 18.7; MCHC 33.6 % (32.0-36.0); MCV 80 fL (80-95); MPV 10.3 fL (8.0-11.0); Monocytes % 8.7; Neutrophils % 71.5; Platelet Count 179 10^3/uL (130-400); RBC 5.11 10^6/uL (4.36-5.78); RDW 14.7 % (11.8-14.1); RDW-SD 43.5 fL; WBC 9.55 10^3/uL (4.4-10.8)
[2022-11-16 06:35] VITALS: BP 120/77; PULSE 92; RESP 20; TEMP 36.9; O2SAT 99
[2022-11-16 06:40] LABS: Anion Gap 7.3 mmol/L (3-11); BUN 10 mg/dL (7-18); CO2 25.7 mmol/L (21.0-32.0); CREATININE 0.7 mg/dL (0.70-1.30); Calcium 7.8 mg/dL (8.5-10.1); Chloride 106 mmol/L (98-107); Glucose 168 mg/dL (74-106); Potassium 3.5 mmol/L (3.5-5.1); Sodium 139 mmol/L (136-145)
[2022-11-16 07:15] LABS: Procalcitonin 58.6 ng/mL
[2022-11-16 08:00] VITALS: RESP 18
--- NOTE | 2022-11-16 08:00 | DI.US_ITS ---
Exam(s) US RENAL EXAM: US RENAL CLINICAL HISTORY: urosepsis; r/o pyelonephritis, stones. TECHNIQUE: Louis scale, color and spectral Doppler were used. COMPARISON: CT CHEST ABD PELVIS WITH CONTRAST from 07/03/2017 FINDINGS: Renal size in cm: Right: 12.0 left: 0.8 Echogenicity: Normal Hydronephrosis: No Cyst or mass: No Nephrolithiasis: No Bladder:Fried catheter in place. Right ureteral jet not seen. Left ureteral jet was visualized. Prevoid vol: 97 Postvoid vol:42 Prostate not visualized. IMPRESSION: No evidence of hydronephrosis. Fried catheter in bladder. DATA REPOSITORY:
[2022-11-16] MEDS: Potassium Chloride 10 MEQ CAPCR 20 MEQ PO (08:14)
[2022-11-16] MEDS: metFORMIN 500 MG TAB 1000 MG PO ×2 (08:14→17:52)
[2022-11-16] MEDS: Aspirin E.C. 81 MG TABEC PO (08:14)
[2022-11-16] MEDS: Insulin Aspart 300 UNITS/3 ML PEN SC ×4 (08:15→12:39)
[2022-11-16] MEDS: Enoxaparin 40 MG/0.4 ML SYR SC (08:16)
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
--- NOTE | 2022-11-16 15:07 | PDOC.CMPRO ---
Date of service: 11/16/22 Time of Service: 15:07 Care Management Progress Note Progress Note Text Progress Note Text: S/O: Geoffrey remains inpatient at this time, awaiting blood cultures anticipate if result is positive he will be able to discharge home on oral antibiotic with no additional services. A: 56 year old male admitted to [facility] 11/13/22 for Urosepsis, DM P: Geoffrey will likely be discharged home with no services when medically cleared by provider.? He will follow up with his PCP and plan of care as instructed.? He will be transported home by his mother via private vehicle when ready.? CM will continue to follow.
[2022-11-16 15:27] VITALS: BP 104/65; PULSE 109; RESP 18; TEMP 37; O2SAT 96
[2022-11-16 19:48] VITALS: BP 116/73; PULSE 103; RESP 12; TEMP 36.3; O2SAT 96
[2022-11-16] MEDS: cefTRIAXone 2 GM/50 ML BAG IVPB (20:19)
[2022-11-16] MEDS: Simvastatin 40 MG TAB PO (21:43)
[2022-11-17 06:21] LABS: Abs Immature Grans 0.03 10^3/uL (0.0-0.06); Absolute Basophil Count 0.03 10^3/uL (0.0-0.2); Absolute Eosinophil Count 0.09 10^3/uL (0.0-0.7); Absolute Lymphocyte Count 2.07 10^3/uL (1.2-3.4); Absolute Monocyte Count 0.84 10^3/uL (0.1-0.8); Absolute Neutrophil Count 5.74 10^3/uL (1.2-6.7); Basophils % 0.3; HCT 41.7 % (40.0-50.0); HGB 13.8 g/dL (13.5-17.5); Immature Grans % 0.3; Lymphocytes % 23.5; MCH 27.1 pg (27.0-33.0); MCHC 33.1 % (32.0-36.0); MCV 82 fL (80-95); MPV 9.8 fL (8.0-11.0); Monocytes % 9.5; Neutrophils % 65.4; Platelet Count 213 10^3/uL (130-400); RDW 14.9 % (11.8-14.1); RDW-SD 45.1 fL
[2022-11-17 06:38] LABS: Anion Gap 9.2 mmol/L (3-11); BUN 12 mg/dL (7-18); CO2 24.8 mmol/L (21.0-32.0); CREATININE 0.7 mg/dL (0.70-1.30); Calcium 7.9 mg/dL (8.5-10.1); Chloride 107 mmol/L (98-107); Glucose 141 mg/dL (74-106); Potassium 3.6 mmol/L (3.5-5.1); Sodium 141 mmol/L (136-145)
[2022-11-17 08:00] VITALS: RESP 18
[2022-11-17] MEDS: Aspirin E.C. 81 MG TABEC PO (08:27)
[2022-11-17] MEDS: Enoxaparin 40 MG/0.4 ML SYR SC (08:27)
[2022-11-17] MEDS: Insulin Aspart 300 UNITS/3 ML PEN SC ×3 (08:28→12:03)
[2022-11-17] MEDS: Potassium Chloride 10 MEQ CAPCR 20 MEQ PO (08:28)
[2022-11-17] MEDS: metFORMIN 500 MG TAB 1000 MG PO (08:28)
--- NOTE | 2022-11-17 11:01 | PDOC.CMPRO ---
Date of service: 11/17/22 Time of Service: 11:01 Care Management Progress Note Progress Note Text Progress Note Text: S/O: Geoffrey remains inpatient at this time, awaiting blood cultures anticipate if result is positive he will be able to discharge home on oral antibiotic with no additional services. A: 56 year old male admitted to [facility] 11/13/22 for Urosepsis, DM P: Geoffrey will likely be discharged home with no services when medically cleared by provider.? He will follow up with his PCP and plan of care as instructed.? He will be transported home by his mother via private vehicle when ready.? CM will continue to follow.
--- NOTE | 2022-11-17 12:48 | PDOC.CMDIS ---
Date of service: 11/17/22 Time of Service: 12:48 LACE Index Scoring Tool Questions: Length of Stay (in days): 4 - 6 Was the patient admitted via the E.D.?: Yes Comorbidities: Diabetes w/o Complication E.D. Visits: 0 Answers: Total Score: 8 Risk of Readmission: Low Risk Care Management Discharge Plan Reason for Hospitalization: UTI, Sepsis, Diabetes Mellitus Discharge Plan: Geoffrey will likely be discharged home with no services when medically cleared by provider. He will follow up with his PCP and plan of care as instructed. He will be transport himself home via private vehicle when ready. Patient/Family Education Needs: Review discharge instructions, discuss Ask Me Three. Services Needed at Discharge: DME Agency (Resumption)
--- NOTE | 2022-11-17 13:28 | W.PM.DS.N ---
Date of service: 11/17/22 Time of Service: 13:28 DS: Diagnosis Discharge Diagnosis (1) Proteus septicemia: Status: Acute (2) UTI (urinary tract infection): Status: Acute (3) Paraplegia: (4) Neurogenic bladder: Status: Chronic (5) Type II diabetes mellitus with complication, uncontrolled: (6) Essential hypertension: (7) Hypokalemia: Status: Acute Discharge Plan Disposition Patient Disposition: Home Condition: Improving Discharge Details Reason For Visit: UTI, Sepsis, Diabetes Mellitus Admit Date/Time: 11/13/22 23:07 Admit Provider: Carlos Eduardo Jones Attending Provider: Carlos Eduardo Jones Primary Care Provider: Artis Gudino Hospital Course Hospital Course: Mr Crowe is a 56 year old male with PMHx of paraplegia and neurogenic bladder, who self-catheterizes, as well as h/o NIDDM2, HTN, hyperlipidemia, who was a patient on [facility] hospitalist service from 11/13/22 until 11/17/22 for Sepsis due to a Proteus UTI complicated by bacteremia. The patient was treated with intravenous ceftriaxone. His repeat blood cultures were done on 11/15 and were negative. He did have a orourke catheter during this hospitalization. His renal ultrasound did not reveal any evidence of obstructive uropathy or stones, showing the orourke catheter in the bladder. The patient is being discharged home today with cefpodoxime to complete a 14 day course of antibiotics. He is being discharged home without a orourke catheter and is being instructed to resume self-catheterization. He was hypokalemic on this admission and was initiated on potassium repletion. He will need to have bloodwork in 1 week to ensure that his potassium is sufficiently repleted. He should follow up with his PCP in 1-2 weeks. Care for patient in addition to completion of his discharge summary on day of discharge took 45 minutes. Home Meds and New Rx's Prescriptions: New potassium chloride 10 mEq Capsule, Extended Release 20 meq PO DAILY Qty: 10 0RF cefpodoxime 200 mg tablet 200 mg PO BID Qty: 20 0RF Rx Instructions: must administer with a meal/food Start tonight, 11/17/22 Lactobacillus acidophilus 1 billion cell capsule 1,000 mmu cells PO DAILY Qty: 30 0RF Continued (DME) insulin syringe-needle U-100 [BD Insulin Syringe Ultra-Fine] 0.3 mL 31 gauge x 5/16 syringe See Rx Instructions .ROUTE .MEDSUPPLY Qty: 400 3RF Rx Instructions: inject 4 x/day (DME) FreeStyle Test Strip See Dose Instructions .ROUTE .MEDSUPPLY Qty: 300 3RF Dose Instruction: As directed Rx Instructions: test 3 x/day losartan 50 mg tablet 50 mg PO DAILY Qty: 90 3RF simvastatin [Zocor] 40 mg tablet 40 mg PO HS Qty: 90 4RF Trulicity 0.75 mg/0.5 mL pen injector 0.75 mg SC QWEEK Qty: 2 11RF metformin 1,000 mg tablet 1,000 mg PO BID Qty: 180 3RF multivitamin [Daily Multi-Vitamin] 1 EACH tablet 1 ea PO DAILY (DME) Orourke Catheter 1 EACH misc 1 ea Miscellaneous twice weekly and prn Qty: 12 12RF Rx Instructions: 16 [place] orourke catheter with 5 cc balloon aspirin 81 MG tablet,delayed release (DR/EC) 81 mg PO DAILY 0RF Discharge Instructions Instructions: Urinary Tract Infection in Men (DC), Cefpodoxime Proxetil (By mouth), Hypokalemia (DC), Sepsis (DC) Additional Instructions: Finish your antibiotics as prescribed. Return to the hospital with any fever, bleeding, chest pain, shortness of breath, or if you feel worse. Resume your usual intermittent catheterization routine. Follow up with your PCP in 1-2 weeks. Bloodwork in 1 week - results to Dr Gudino. Stand Alone Forms: Nursing Discharge Form Referrals: Artis Gudino MD [Primary Care Provider] - Activity:: Activity as Tolerated Equipment/Supplies:: No Equipment Needed Diet:: As Tolerated Discharge Orders Discharge Orders: Discharge Order (Routine); Ordered 11/17/22 Ordered By: Tonja Bowles Other Ambulatory Orders: Basic Metabolic Panel (Routine) Timeframe: 20221124 Location: Determined by Patient Ordered By: Tonja Bowles DS: Summary Time Spent with Patient providing and/or coordinating discharge services: Greater than 30 minutes Status at Discharge Functional status at discharge: wheelchair bound Overall status at discharge: patient is progressing back to baseline Mental Status: mental status grossly normal Speech and Movement: speech and movement normal Mood: congruent mood Affect: normal affect Exam Narrative Exam Narrative: General: Pleasant middle-aged male who is seen laying in bed, A&Ox3, NAD, appears to be feeling well HEENT: EOMI, MMM Heart: RRR, mildly tachycardic Lungs: CTAB Abdomen: soft, nontender, nondistended Extremities: B foot drop Psych Mental Status: mental status grossly normal Speech and Movement: speech and movement normal Mood: congruent mood Affect: normal affect DS: Data Vitals/I&O Vitals and I&O: Vital Signs Temperature 36.3 C L 11/16/22 19:48 Temperature Source Tympanic 11/16/22 19:48 Pulse 103 H 11/16/22 19:48 Pulse Rhythm Regular 11/17/22 08:00 Pulse 109 H 11/14/22 15:01 Respiratory Rate 18 11/17/22 08:00 Respiratory Effort Normal, Non-Labored 11/17/22 08:00 Respiratory Depth Normal 11/17/22 08:00 Respiratory Pattern Normal 11/17/22 08:00 Blood Pressure 116/73 11/16/22 19:48 Blood Pressure Mean 62 11/14/22 15:01 Blood Pressure Position Right Lateral 11/14/22 14:23 Pulse Oximetry 96 11/16/22 19:48 Oxygen Delivery Method Room Air 11/16/22 19:48 Oxygen Flow Rate 0 11/16/22 19:48 Pain Level 0 11/17/22 08:00 Intake & Output 11/16/22 11/17/22 11/17/22 23:59 11:59 23:59 Intake Total 650 / 710 310 / 310 Output Total 2400 / 3400 2450 / 2450 Balance -1750 / -2690 -2140 / -2140 Intake: IV 50 / 110 10 / 10 Oral 600 / 600 300 / 300 Output: Urine 2400 / 3400 2450 / 2450 Other: Urine Color Yellow Yellow Urine Appearance Clear Clear Urine Odor Normal Comment Rn emptied cath but documented in wrong spot Voiding Methods Indwelling Catheter Data Completed and Pending Completed studies during hospitalization [Text1]: CXR 11/14/22: Slightly atelectasis in the lower right lung field. US renal 11/16/22: No evidence of hydronephrosis. Orourke catheter in bladder. Labs on day of discharge: Labs from last 24 hours 11/17/22 11/17/22 06:00 06:00 WBC 8.80 RBC 5.10 Hgb 13.8 Hct 41.7 MCV 82 MCH 27.1 MCHC 33.1 RDW 14.9 H Plt Count 213 MPV 9.8 Immature Gran % 0.3 Neutrophils % 65.4 Lymphocytes % 23.5 Monocytes % 9.5 Eosinophils % 1.0 Basophils % 0.3 Nucleated RBC % 0.0 Absolute Neutrophils 5.74 Absolute Lymphocytes 2.07 Absolute Monocytes 0.84 H Absolute Eosinophils 0.09 Absolute Basophils 0.03 Sodium 141 Potassium 3.6 Chloride 107 Carbon Dioxide 24.8 Anion Gap 9.2 BUN 12 Creatinine 0.7 Est GFR (CKD-EPI 2020) 109.50 Glucose 141 H Calcium 7.9 L Preliminary micro results at discharge 11/15/22 12:12 Blood Culture - Preliminary Blood NO GROWTH 24 HOURS 11/15/22 12:05 Blood Culture - Preliminary Blood NO GROWTH 24 HOURS PFSH All Active Problems (Updated 11/17/22 @ 13:30 by Tonja Bowles MD) Proteus septicemia (Acute) DVT prophylaxis (Acute) UTI (urinary tract infection) (Acute) Retinopathy (Acute ~08/2021) 09/08/21 B/L (MILD) [place] Polycythemia (Acute) Abscess of left leg (Acute 07/21/17) Chronic osteomyelitis of left lower leg (Acute 07/21/17) ED (erectile dysfunction) of organic origin (Acute 05/22/16) Ischemia (Acute 07/21/17) Left shoulder pain (Acute 02/22/17) Neurogenic bladder (Chronic 02/01/17) Other acute osteomyelitis, other site (Acute 06/28/17) ischial tuberosity ulcer Tubular adenoma (Acute 12/24/17) [facility] [place]-12/24/17 Urinary retention (Acute 02/01/17) 01/30/17 UNABLE TO SELF CATH Bacterial infection due to Bacteroides fragilis (Acute) Decubitus ulcer of ischial area, stage 4 (Acute) Urethral diverticulum (Acute) Osteomyelitis (Acute) Diabetes mellitus (Acute) Supraspinatus tendinitis (Acute) Bacteremia (Acute) Shoulder pain, acute (Acute) Anemia of chronic disease (Acute) Hypokalemia (Acute) Sepsis (Acute) Abscess of pelvis (Acute) Medical History Deep vein thrombosis (DVT) of brachial vein of left upper extremity Essential hypertension (08/30/12) GERD (gastroesophageal reflux disease) Hyperlipidemia Migraine Paraplegia Type II diabetes mellitus with complication, uncontrolled Surgical History Debridement Ulcer (06/28/17) infected wound, ischial tuberosity Family History Grandfather Diabetes Personal history of malignant neoplasm PANCREATIC Grandmother Essential hypertension Personal history of malignant neoplasm Stroke Asthma MATERNAL UNCLE Diabetes Social History Smoking/Tobacco Use Status: Never Second Hand Exposure: No Smoking risk assessment performed?: Yes Alcohol Intake: never Substance use type: former substance user Household members: family Housing: house Communication Needs: None current occupation: [employer] Pets and animals: Yes Pets and animals: dog(s) Sexually active: No Current gender identity: male What is your relationship status?: never How often do you talk on the phone with friends or family?: once per week How often do you get together with friends or relatives?: once per week Do you belong to any clubs or organized social groups?: no Panel score (0-1 are the most socially isolated patients): 0 What type of physical activity do you participate in: regular exercise (stationary bike and up and down ramp in wheelchair) and wheelchair-bound Duration: 15-30 minutes/day Frequency: daily Nisha/Shinto: No preference Special nisha needs: No Seatbelt use: always Helmet use: No Drive intox or ride w/intox tractor driver teamster: No Do you feel safe in your relationship?: Yes Time Spent with Patient Time Spent with Patient: 45-69 minutes Time was spent: preparing to see the patient(eg.review tests), obtaining and/or reviewing separately otained hiistory, ordering medications,tests, procedures, referring, communicating with other health healthcare management consultant, indepentently interpreting results, counseling the patient and care coordination
== END 2022-11-17 14:19 | disposition home or self-care (01) | DRG 872 ==
LOC: ER 23:29 → ICU 11-14 12:16 → MS 11-14 16:47
PROVIDERS: Internal Medicine; Admitting Provider Family Medicine; Emergency Provider Emergency Medicine; PCP Family Medicine; Visit Provider Family Medicine
DX: N39.0 Urinary tract infection, site not specified; G82.20 Paraplegia, unspecified; M86.662 Other chronic osteomyelitis, left tibia and fibula; N31.9 Neuromuscular dysfunction of bladder, unspecified; E11.65 Type 2 diabetes mellitus with hyperglycemia; I10 Essential (primary) hypertension; A41.59 Other Gram-negative sepsis; E87.6 Hypokalemia; D63.8 Anemia in other chronic diseases classified elsewhere; Z86.718 Personal history of other venous thrombosis and embolism; K21.9 Gastro-esophageal reflux disease without esophagitis; E78.5 Hyperlipidemia, unspecified; G43.909 Migraine, unspecified, not intractable, without status migrainosus; Z99.3 Dependence on wheelchair; D75.1 Secondary polycythemia; B96.4 Proteus (mirabilis) (morganii) as the cause of diseases classified elsewhere
CPT/HCPCS: 36410; 36415; 76770; 80048; 80053; 82805; 84145; 85027; 87040; 87077; 93005; 96361; 96365; 96367; 99291; J1650; 71045; 81003; 81015; 83036; 83605; 83735; 84132; 85025; 87086; 87186; 93010; 99223; 99231; 99232; 99233; 99239; J0131; J3480

== ENCOUNTER 2022-11-24 03:31 | Outpatient (CLI) | payer MEDICARE, SELFPAY ==
[2022-11-24 09:50] LABS: Anion Gap 7.7 mmol/L (3-11); BUN 22 mg/dL (7-18); CO2 28.3 mmol/L (21.0-32.0); CREATININE 0.7 mg/dL (0.70-1.30); Calcium 9.1 mg/dL (8.5-10.1); Chloride 104 mmol/L (98-107); Glucose 137 mg/dL (74-106); Potassium 4.1 mmol/L (3.5-5.1); Sodium 140 mmol/L (136-145)
== END 2022-11-24 03:32 | disposition home or self-care (01) ==
PROVIDERS: Internal Medicine; PCP Family Medicine; Visit Provider Family Medicine
DX: E87.6 Hypokalemia (principal); E11.9 Type 2 diabetes mellitus without complications; D64.9 Anemia, unspecified
CPT/HCPCS: 36415; 80048

== ENCOUNTER 2023-11-09 18:24 | Outpatient (REF) | payer MEDICARE, SELFPAY ==
[2023-11-09 21:25] LABS: CREATININE 0.8 mg/dL (0.70-1.30); Calculated LDL 98 mg/dL (<100); Cholesterol 174 mg/dL (<200); Estimated GFR 104.51 (mL/min/1.73m2); HDL Cholesterol 35 mg/dL (40-60); Hemoglobin A1C 5.8 % (<5.7); Potassium 4.2 mmol/L (3.5-5.1); Triglyceride 208 mg/dL (<150)
== END 2023-11-09 18:25 | disposition home or self-care (01) ==
LOC: LBN 18:24
PROVIDERS: PCP Family Medicine; Visit Provider Family Medicine
DX: E78.5 Hyperlipidemia, unspecified (principal); E11.51 Type 2 diabetes mellitus with diabetic peripheral angiopathy without gangrene; I70.209 Unspecified atherosclerosis of native arteries of extremities, unspecified extremity; I10 Essential (primary) hypertension
CPT/HCPCS: 80061; 82565; 83036; 84132

== ENCOUNTER 2024-11-16 10:00 | Outpatient (CLI) | payer MEDICARE, SELFPAY ==
[2024-11-16 12:44] LABS: HCT 44.4 % (40.0-50.0); HGB 13.9 g/dL (13.5-17.5); MCH 25.8 pg (27.0-33.0); MCHC 31.3 % (32.0-36.0); MCV 83 fL (80-95); MPV 9.6 fL (8.0-11.0); Platelet Count 346 10^3/uL (130-400); RBC 5.38 10^6/uL (4.36-5.78); RDW 14.0 % (11.8-14.1); RDW-SD 41.8 fL; WBC 8.60 10^3/uL (4.4-10.8)
[2024-11-16 13:10] LABS: Estimated GFR 119.71 (mL/min/1.73m2); Potassium 3.8 mmol/L (3.5-5.1)
[2024-11-16 19:12] LABS: PSA, Screening 3.9 ng/mL (<=3.5)
== END 2024-11-16 10:01 | disposition home or self-care (01) ==
LOC: LOS 10:01
PROVIDERS: PCP Family Medicine; Visit Provider Family Medicine
DX: Z12.5 Encounter for screening for malignant neoplasm of prostate (principal); I10 Essential (primary) hypertension; R53.83 Other fatigue
CPT/HCPCS: 36415; 84153; 85027; 82565; 84132

== ENCOUNTER → 2025-01-15 08:21 | Outpatient (BNVA) | payer MEDICARE, SELFPAY | PROVIDERS: PCP Family Medicine; Referring Provider Family Medicine; Visit Provider Student in an Organized Health Care Education/Training Program | DX: L89.151 Pressure ulcer of sacral region, stage 1 (principal); G82.20 Paraplegia, unspecified | CPT/HCPCS: 99213 ==

== ENCOUNTER 2025-03-28 03:19 | Outpatient (CLI) | payer MEDICARE, SELFPAY ==
[2025-03-28 12:47] LABS: AST 15 U/L (<34)
== END 2025-03-28 03:20 | disposition home or self-care (01) ==
LOC: LOS 03:19
PROVIDERS: PCP Family Medicine; Visit Provider Family Medicine
DX: E78.5 Hyperlipidemia, unspecified (principal)
CPT/HCPCS: 36415; 84450

== ENCOUNTER → 2025-05-01 10:40 | Outpatient (BNVA) | payer MEDICARE, SELFPAY | PROVIDERS: PCP Family Medicine; Referring Provider Family Medicine; Visit Provider Nurse Practitioner Gerontology | DX: N31.9 Neuromuscular dysfunction of bladder, unspecified (principal); R97.20 Elevated prostate specific antigen [PSA]; E11.59 Type 2 diabetes mellitus with other circulatory complications; I10 Essential (primary) hypertension | CPT/HCPCS: 99214 ==

== ENCOUNTER 2025-05-01 12:20 | Outpatient (CLI) | payer MEDICARE, SELFPAY ==
[2025-05-01 19:11] LABS: PSA, Diagnostic 4.0 ng/mL (<=3.5)
== END 2025-05-01 12:21 | disposition home or self-care (01) ==
LOC: LBO 12:20
PROVIDERS: PCP Family Medicine; Visit Provider Nurse Practitioner Gerontology
DX: R97.20 Elevated prostate specific antigen [PSA] (principal)
CPT/HCPCS: 36415; 84153